=== PATIENT | male | born 1945 | race Caucasian/White ===

== ENCOUNTER → 2020-09-14 | Outpatient (CLI) | payer MEDICARE, OTHER ==
[~2020-09-14] MED LIST: AMIODARONE HCL200 MG PO; ANASTROZOLE1 MG PO; ANORO; ANORO ELLIPTA1 EACH INH; ATORVASTATIN CA40 MG PO; BEVESPI AEROS10.7 GM INH; CLOPIDOGREL75 MG PO; COREG 12.5MG12.5 MG PO; CYANOCOBAL1000 MCG/1 INJ; ECOTRIN81 MG PO; ELIQUIS 5 MG TAB5 MG PO; ELIQUIS5 MG PO; ENTRESTO 49 MG1 EACH PO; FINASTERIDE5 MG PO; HYDRALAZINE PO; HYDROCODON-ACE1 EAC4 PO; LASIX40 MG PO; LEVAQUIN500 MG PO; LEVOFLOXACIN250 MG PO; LOPRESSOR 25 MG25 MG PO; MEDROL4 MG PO; METOPROLOL SUCC50 MG PO; POTASSIUM CHLO10 ME1 PO; PRINIVIL5 MG PO; SERTRALINE HCL25 MG PO; SILDENAFIL20 MG PO; TESTOSTERO200 MG/1 M IM; VENTOLIN; VENTOLIN HFA 66.7 GM INH; [UNRECOGNIZED DRUG - OTHER]
== END ==
LOC: HEART 5 14:43
DX: J44.9 Chronic obstructive pulmonary disease, unspecified (principal); I25.10 Atherosclerotic heart disease of native coronary artery without angina pectoris; I42.9 Cardiomyopathy, unspecified; I48.91 Unspecified atrial fibrillation; I48.92 Unspecified atrial flutter; I65.21 Occlusion and stenosis of right carotid artery; R94.30 Abnormal result of cardiovascular function study, unspecified; R94.39 Abnormal result of other cardiovascular function study; Z87.891 Personal history of nicotine dependence; R94.2 Abnormal results of pulmonary function studies
CPT/HCPCS: 94010; 94729

== ENCOUNTER → 2020-10-07 | Outpatient (CLI) | payer MEDICARE, OTHER ==
[2020-10-07 15:02] LABS: HEMOGLOBIN 14.4 gm/dl (14.0-17.5); RED BLOOD COUNT 4.49 M/UL (4.20-5.50); WHITE BLOOD COUNT 7.3 K/UL (4.5-11.0)
== END ==
LOC: LAB 13:28
PROVIDERS: Internal Medicine Cardiovascular Disease
DX: I48.91 Unspecified atrial fibrillation (principal); I50.22 Chronic systolic (congestive) heart failure; I25.5 Ischemic cardiomyopathy; I45.4 Nonspecific intraventricular block; Z20.822 Contact with and (suspected) exposure to COVID-19
CPT/HCPCS: 36415; 71046; 80048; 85025; U0003

== ENCOUNTER 2020-10-11 07:03 | Outpatient (CLI) | payer MEDICARE, OTHER ==
[~2020-10-11] VITALS: Ht 190.5 cm; Wt 128.8 kg
[~2020-10-11 07:03] MED LIST changes: -ANASTROZOLE1 MG PO; -ATORVASTATIN CA40 MG PO; -BEVESPI AEROS10.7 GM INH; -CLOPIDOGREL75 MG PO; -COREG 12.5MG12.5 MG PO; -CYANOCOBAL1000 MCG/1 INJ; -ENTRESTO 49 MG1 EACH PO; -FINASTERIDE5 MG PO; -HYDROCODON-ACE1 EAC4 PO; -LEVOFLOXACIN250 MG PO; -POTASSIUM CHLO10 ME1 PO; -SERTRALINE HCL25 MG PO; -SILDENAFIL20 MG PO; -TESTOSTERO200 MG/1 M IM
[2020-10-11] MEDS ORDERED: CLOPIDOGREL75 MG PO (08:35)
[2020-10-11] MEDS ORDERED: CYANOCOBAL1000 MCG/1 INJ (08:36)
[2020-10-11] MEDS ORDERED: ELIQUIS5 MG PO (08:36)
[2020-10-11] MEDS ORDERED: TESTOSTERO200 MG/1 M IM (08:36)
[2020-10-11] MEDS ORDERED: ENTRESTO 49 MG1 EACH PO (08:38)
[2020-10-11] MEDS ORDERED: FINASTERIDE5 MG PO (08:38)
[2020-10-11] MEDS ORDERED: ATORVASTATIN CA40 MG PO (08:38)
[2020-10-11] MEDS ORDERED: SERTRALINE HCL25 MG PO (08:39)
[2020-10-11] MEDS ORDERED: POTASSIUM CHLO10 ME1 PO (08:39)
[2020-10-11] MEDS ORDERED: ANASTROZOLE1 MG PO (08:40)
[2020-10-11] MEDS ORDERED: BEVESPI AEROS10.7 GM INH (08:40)
[2020-10-11] MEDS ORDERED: COREG 12.5MG12.5 MG PO (08:41)
[2020-10-11] MEDS ORDERED: SILDENAFIL20 MG PO (08:42)
[2020-10-11] MEDS ORDERED: HYDROCODON-ACE1 EAC4 PO (12:00)
[2020-10-11] MEDS ORDERED: LEVOFLOXACIN250 MG PO (12:00)
== END 2020-10-12 12:37 | disposition home or self-care (01) ==
LOC: CATH 07:03 → PROG CARE 12:19 → CATH 10-12 12:37
DX: I13.0 Hypertensive heart and chronic kidney disease with heart failure and stage 1 through stage 4 chronic kidney disease, or unspecified chronic kidney disease (principal); N18.9 Chronic kidney disease, unspecified; I50.22 Chronic systolic (congestive) heart failure; I48.0 Paroxysmal atrial fibrillation; I25.5 Ischemic cardiomyopathy; I44.7 Left bundle-branch block, unspecified; I25.10 Atherosclerotic heart disease of native coronary artery without angina pectoris; I25.2 Old myocardial infarction; J44.9 Chronic obstructive pulmonary disease, unspecified; E78.5 Hyperlipidemia, unspecified; Z87.891 Personal history of nicotine dependence; Z95.1 Presence of aortocoronary bypass graft; Z98.890 Other specified postprocedural states; Z79.01 Long term (current) use of anticoagulants; Z79.02 Long term (current) use of antithrombotics/antiplatelets; Z79.899 Other long term (current) drug therapy
CPT/HCPCS: 33225; 33249; 71045; 92960; 93005; 93641; 94640; 94664; 94760; 99152; 99153; C1769; C1777; C1882; C1898; C1900; J1200; J1644; J2250; J3010; J3370; J7040; J7050; J7070; Q9965

== ENCOUNTER → 2020-11-02 | Outpatient (CLI) | payer MEDICARE, OTHER ==
[~2020-11-02] MED LIST changes: +ANASTROZOLE1 MG PO; +ATORVASTATIN CA40 MG PO; +BEVESPI AEROS10.7 GM INH; +CLOPIDOGREL75 MG PO; +COREG 12.5MG12.5 MG PO; +CYANOCOBAL1000 MCG/1 INJ; +ENTRESTO 49 MG1 EACH PO; +FINASTERIDE5 MG PO; +HYDROCODON-ACE1 EAC4 PO; +LEVOFLOXACIN250 MG PO; +POTASSIUM CHLO10 ME1 PO; +SERTRALINE HCL25 MG PO; +SILDENAFIL20 MG PO; +TESTOSTERO200 MG/1 M IM
== END ==
LOC: EXRD 10-18 11:30 → US 08:00 → EXRD 09:15
DX: I65.21 Occlusion and stenosis of right carotid artery (principal)
CPT/HCPCS: 93880

== ENCOUNTER → 2020-11-23 | Outpatient (CLI) | payer MEDICARE, OTHER | LOC: CT 07:57 | DX: Z13.858 Encounter for screening for other nervous system disorders (principal); I65.23 Occlusion and stenosis of bilateral carotid arteries | CPT/HCPCS: 36415; 70498; 82565; 84520; Q9965 ==